=== PATIENT | female | born 1980 | race African-American/Black ===

== ENCOUNTER 2019-08-04 12:17 | Emergency (ER) | payer OTHER ==
[~2019-08-04] VITALS: Ht 162.6 cm; Wt 108.9 kg
[~2019-08-04 12:17] MED LIST: AMOXICILLIN 50500 M1 PO; APAP/CODEI12 MG/5 ML PO; AUGMENTIN 875875 MG PO; BACTRIM DS TAB1 EACH PO; CLARITIN10 MG PO; CLEOCIN HCL150 MG PO; CORTISPORIN OTI10 M2 OTIC; CORTISPORIN OTI10 ML OTIC; FLEXERIL PO; HYDROCODONE-AP1 EAC6 PO; IBUPROFEN 800800 M1 PO; MEDROLDOSEPACK PO; MULTIVITAMINS; NOHOMEMEDICATIONS; NORCO 5-325 TA1 EACH PO; PENICILLIN V P500 MG PO; TRAMADOL 50 MG50 MG PO; [UNRECOGNIZED DRUG - SUPPLY] PO
[2019-08-04 13:11] LABS: ABSOLUTE NEUTROPHILS 4.5 thou/uL (1.4-8.2); BASOPHILS 0.9 % (0.0-2.0); EOSINOPHILS 3.1 % (0.0-3.0); HEMATOCRIT 39.6 % (37.0-47.0); HEMOGLOBIN 13.1 gm/dL (12.0-15.0); LYMPHOCYTES 38.7 % (24.0-44.0); MCH 28.9 pg (26.0-34.0); MCHC 33.1 g/dL (28.0-37.0); MCV 87.3 fL (80.0-100.0); MONOCYTES 8.4 % (1.0-8.0); PLATELET COUNT 266 thou/uL (150-400); POLYS 48.9 % (36.0-66.0); RBC 4.54 mil/uL (4.20-5.00); RDW 14.1 % (10.5-14.5); WBC 9.2 thou/uL (4.0-11.0)
[2019-08-04 13:22] LABS: ANION GAP 8 mmol/L (7-16); BUN 14 mg/dL (7-18); CALCIUM 9.3 mg/dL (8.5-10.1); CHLORIDE 106 mmol/L (98-107); CO2 26 mmol/L (21-32); CREATININE 0.6 mg/dL (0.6-1.0); GLUCOSE 84 mg/dL (74-106); POTASSIUM 4.2 mmol/L (3.5-5.1); SODIUM 140 mmol/L (136-145)
[2019-08-04 13:33] LABS: ALBUMIN 4.2 g/dL (3.4-5.0); SGOT 21 U/L (15-37); SGPT 29 U/L (30-65); TOTAL BILIRUBIN 0.4 mg/dL (<0.1-1.0); TOTAL PROTEIN 7.1 g/dL (6.4-8.2); TROPONIN-I <0.06 ng/mL (<0.06)
[2019-08-04] MEDS ORDERED: ULTRAM 50MG TAB50 MG PO (14:49)
[2019-08-04] MEDS ORDERED: MOBIC15 MG PO (14:49)
[2019-08-04 15:09] VITALS: BP 122/63
--- NOTE | 2019-08-05 08:01 | EKG ---
[address] [address] ELECTROCARDIOGRAM REPORT Name: DORINA ROACH Room [facility] [id number] Admission: 08/04/19 Attend Phys: Discharge: 08/04/19 Date of : 82 Report #: [id number] THIS REPORT FOR: //name// [facility] ED Test Date: 2019-08-04 Test Time: 12:24:55 Pat Name: DORINA ROACH Department: Room: Gender: F [employer]: : [id number] Requested By: Jose Angel Mijares Order Number: [id number] MD: Carlos Angel Measurements Intervals [place] Rate: 68 P: 26 OR: 164 QRS: 15 QRSD: 82 T: 33 QT: 380 QTc: 405 Interpretive Statements Sinus rhythm No previous ECG available for comparison Electronically Signed On 08-05-2019 8:01:19 CDT by Carlos Angel [email or web address] <ELECTRONICALLY SIGNED> By: Carlos Angel MD 08/05/19 0801 1224 1224 Carlos Angel MD /ANGÉLICA
== END 2019-08-04 15:11 | disposition home or self-care (01) ==
LOC: ER 12:17
PROVIDERS: Physician Assistant
DX: M94.0 Chondrocostal junction syndrome [Tietze] (principal); Z90.49 Acquired absence of other specified parts of digestive tract